=== PATIENT | female | born 1945 | race Caucasian/White ===

== ENCOUNTER 2021-08-27 13:08 | Emergency (ER) | payer MEDICARE, BC ==
[~2021-08-27] VITALS: Ht 152.4 cm; Wt 43.1 kg
[2021-08-27] MEDS ORDERED: ACETAMINOPHEN (13:35)
[2021-08-27] MEDS ORDERED: MELA3TAB41 PO (13:35)
[2021-08-27] MEDS ORDERED: AMLO10TA59 PO (13:35)
[2021-08-27] MEDS ORDERED: DOCU100C36 PO (13:35)
[2021-08-27] MEDS ORDERED: BISA10SU61 RC (13:35)
[2021-08-27] MEDS ORDERED: METO25TA6 PO (13:35)
[2021-08-27] MEDS ORDERED: ATOR20TA PO (13:35)
[2021-08-27] MEDS ORDERED: ASPI81TA31 PO (13:35)
[2021-08-27] MEDS ORDERED: CALC200T42 PO (13:35)
[2021-08-27] MEDS ORDERED: SENNA PO (13:35)
[2021-08-27] MEDS ORDERED: BACL10TA PO ×2 (13:35)
[2021-08-27] MEDS ORDERED: MIRT-94 PO (13:35)
[2021-08-27] MEDS ORDERED: LOSA100T31 PO (13:35)
[2021-08-27] MEDS ORDERED: DOCUSATE PO (13:35)
[2021-08-27] MEDS ORDERED: [UNRECOGNIZED DRUG - OTHER] PO (13:35)
[2021-08-27] MEDS ORDERED: SERT50TA PO (13:35)
[2021-08-27] MEDS ORDERED: MENT71OI TP (13:35)
[2021-08-27] MEDS ORDERED: CHOL100045 PO (13:35)
[2021-08-27] MEDS ORDERED: POLY17PO4 PO (13:35)
[2021-08-27] MEDS ORDERED: VITAMIN D (13:35)
--- NOTE | 2021-08-27 13:36 | NUR ---
PT IS IN ROOM #1A. DR CARNES EVALUATED THE PT.
[2021-08-27 13:55] LABS: HEMATOCRIT 33.5 % (31.2-41.9); MEAN CORPUSCULAR HEMOGLOBIN 33.6 uug (24.7-32.8); MEAN CORPUSCULAR VOLUME 96.6 fL (75.5-95.3); PLATELET COUNT (AUTO) 222 K/uL (179-408)
[2021-08-27 13:57] LABS: CARBON DIOXIDE 30 mmol/L (21-32); CHLORIDE 91 mmol/L (98-107); CREATININE 0.8 mg/dL (0.6-1.3); GLUCOSE 138 mg/dL (74-106); POTASSIUM 4.4 mmol/L (3.5-5.1); UREA NITROGEN, BLOOD 15 mg/dL (7-18)
[2021-08-27 14:05] LABS: ALANINE AMINOTRANSFERASE 43 U/L (14-59); ALKALINE PHOSPHATASE 102 U/L (50-136); ASPARTATE AMINOTRANSFERASE 31 U/L (15-37); BILIRUBIN,DIRECT 0.1 mg/dL (0.0-0.2); BILIRUBIN,TOTAL 0.2 mg/dL (0.2-1.0)
--- NOTE | 2021-08-27 14:05 | NUR ---
Patient is back from CT scan in same condition, denies any pains, patient wants to go home. MD notified. Patient's daughter [email or web address].
--- NOTE | 2021-08-27 15:30 | NUR ---
IV removed. Catheter intact and site benign. Pressure and 4x4 gauze applied to site. No bleeding noted. Patient does not wish to proceed with medical care recommended by Dr. Nuñez. Patient and family were given information related to possible complications, up to and including , which could occur as a result of leaving the hospital at this time. Patient and family verbalized understanding of risks involved due to leaving against medical advice. Patient signed AMA form.
[2021-08-27 15:35] VITALS: BP 120/60
== END 2021-08-27 15:36 | disposition left against medical advice (07) ==
LOC: ER 13:08
DX: E87.1 Hypo-osmolality and hyponatremia (principal); R55 Syncope and collapse; I95.9 Hypotension, unspecified; E87.8 Other disorders of electrolyte and fluid balance, not elsewhere classified; I25.10 Atherosclerotic heart disease of native coronary artery without angina pectoris; I69.951 Hemiplegia and hemiparesis following unspecified cerebrovascular disease affecting right dominant side; Z53.29 Procedure and treatment not carried out because of patient's decision for other reasons
CPT/HCPCS: 36415; 70450; 71045; 84484; 85025; 85730; 93005; A4663

== ENCOUNTER 2022-04-09 18:19 | Inpatient (IN) | payer MEDICARE, BC ==
[~2022-04-09] VITALS: Ht 152.4 cm; Wt 32.7 kg
[~2022-04-09 18:19] MED LIST: ACETAMINOPHEN; AMLO10TA59 PO; ASPI81TA31 PO; ATOR20TA PO; BACL10TA PO; BISA10SU61 RC; CALC200T42 PO; CHOL100045 PO; DOCU100C36 PO; DOCUSATE PO; LOSA100T31 PO; MELA3TAB41 PO; MENT71OI TP; METO25TA6 PO; MIRT-94 PO; POLY17PO4 PO; SENNA PO; SERT50TA PO; VITAMIN D; [UNRECOGNIZED DRUG - OTHER] PO
--- NOTE | 2022-04-09 18:26 | NUR ---
Dr [email or web address], medical screening exam in progress
[2022-04-09 18:47] LABS: HEMATOCRIT 34.6 % (31.2-41.9); MEAN CORPUSCULAR HEMOGLOBIN 32.7 uug (24.7-32.8); MEAN CORPUSCULAR VOLUME 96.7 fL (75.5-95.3); PLATELET COUNT (AUTO) 236 K/uL (179-408)
[2022-04-09 19:03] LABS: CARBON DIOXIDE 29 mmol/L (21-32); CHLORIDE 90 mmol/L (98-107); CREATININE 0.6 mg/dL (0.6-1.3); GLUCOSE 115 mg/dL (74-106); UREA NITROGEN, BLOOD 14 mg/dL (7-18)
--- NOTE | 2022-04-09 19:09 | NUR ---
Patient is back from CT scan with same condition, pending urine specimen. Patient's family is at the bedside.
--- NOTE | 2022-04-09 19:13 | NUR ---
PAUL from Sara FARRIS
[2022-04-09] MEDS ORDERED: HYDR-894 PO (19:22)
[2022-04-09] MEDS ORDERED: BACL10TA PO (19:22)
[2022-04-09] MEDS ORDERED: MULT-594 PO (19:22)
[2022-04-09] MEDS ORDERED: SENN-301 PO (19:22)
[2022-04-09] MEDS ORDERED: MENT71OI TP (19:22)
[2022-04-09] MEDS ORDERED: ACET-2154 PO (19:22)
[2022-04-09] MEDS ORDERED: IV NS 1000 ML 1,000 ML IV ONE (19:45)
--- NOTE | 2022-04-09 21:03 | NUR ---
Patient has beenj accepted by [facility]
--- NOTE | 2022-04-09 21:04 | NUR ---
Per Oumar FARRISpie filling mixer, no beds available at the moment. Patient will stay in ER until a bed is available
[2022-04-09 21:05] LABS: *BILIRUBIN,URIN NEGATIVE (NEGATIVE); *BLOOD, URINE NEGATIVE (NEGATIVE); *CLARITY,URINE CLEAR (CLEAR); *COLOR,URINE YELLOW (YELLOW); *KETONES,URINE NEGATIVE (NEGATIVE); *UROBILINOGEN,URINE 0.2 E.U./dl (NORMAL); LEUKOCYTE ESTERASE ,URINE NEGATIVE (NEGATIVE); NITRITE, URINE NEGATIVE (NEGATIVE); PH,URINE 8.5 (5.0-8.0); UGLUCOSE NEGATIVE (NEGATIVE)
[2022-04-09] MEDS ORDERED: ASPIRIN 81 MG TAB.CHEW PO ONE (21:15)
[2022-04-09] MEDS ORDERED: ASPIRIN 81 MG TAB.CHEW ONE (21:16)
[2022-04-09] MEDS ORDERED: MAGNESIUM HYDROXIDE 30 ML LIQUID UDC PO PRN (22:30)
[2022-04-09] MEDS ORDERED: ONDANSETRON 4 MG/2 ML VIAL IV PRN (22:30)
[2022-04-09] MEDS ORDERED: ACETAMINOPHEN 325 MG TABLET PO PRN (22:30)
[2022-04-09] MEDS ORDERED: REMEDY ESSENTIAL ZINC PASTE 113 GM TP PRN (22:30)
[2022-04-09] MEDS ORDERED: ENOXAPARIN SODIUM 40 MG/0.4 ML DISP.SYRIN SQ ONE (22:38)
[2022-04-09] MEDS: ENOXAPARIN SODIUM 40 MG/0.4 ML DISP.SYRIN SQ SCH (22:42)
[2022-04-10] VITALS (8 sets, daily range): BP systolic 111–197; BP diastolic 57–89
--- NOTE | 2022-04-10 04:35 | NUR ---
Patient will be transfered to [facility] 2nd floor bed 5
--- NOTE | 2022-04-10 04:36 | NUR ---
Endorsed to Rick Corral RN
--- NOTE | 2022-04-10 05:13 | NUR ---
Patient was transported from the ED to [facility]. Patient was transferred into a hospital bed and connected to the c d still operator for continuous monitoring. The patient is A/Ox4, noted to have right sided weakness due to a hx of previous CVA. The patient is admitted to [facility] for a syncopal event at her [facility]. Respiratory even and unlabored, no cough, or shortness of breath. Denies any chest pain, palpitations, or pressure. Abdomen is flat, non-tender, non-distended, denies any abdominal pain. Skin intact, with blanchable redness in the coccyx area without evidence of skin breakdown. Patient in bed at lowest position, sr upx2, call light within reach. Safety precautions implemented per protocol.
--- NOTE | 2022-04-10 05:13 | NUR ---
Pt. admitted to [facility] bed 5, under care of Estef[facility] CONFIGURATION MANAGER Belongs List completed Rick RN aware of patient's arrival
[2022-04-10 05:34] LABS: HEMATOCRIT 36.7 % (31.2-41.9); MEAN CORPUSCULAR HEMOGLOBIN 32.4 uug (24.7-32.8); MEAN CORPUSCULAR VOLUME 98.2 fL (75.5-95.3); PLATELET COUNT (AUTO) 246 K/uL (179-408)
[2022-04-10 05:49] LABS: CARBON DIOXIDE 28 mmol/L (21-32); CHLORIDE 96 mmol/L (98-107); CREATININE 0.5 mg/dL (0.6-1.3); GLUCOSE 91 mg/dL (74-106); MAGNESIUM 2.2 mg/dL (1.8-2.4); POTASSIUM 4.2 mmol/L (3.5-5.1); UREA NITROGEN, BLOOD 11 mg/dL (7-18)
[2022-04-10 05:56] LABS: BILIRUBIN,DIRECT 0.1 mg/dL (0.0-0.2); BILIRUBIN,TOTAL 0.3 mg/dL (0.2-1.0); PHOSPHOROUS 3.8 mg/dL (2.5-4.9); TOTAL PROTEIN, SERUM 7.8 g/dL (6.4-8.2)
[2022-04-10 06:01] LABS: THYROID STIMULATING HORMONE 2.769 mIU/mL (0.358-3.740)
--- NOTE | 2022-04-10 07:11 | NUR ---
Report given to Lilly Marshall RN for continuity of care. Patient vital signs are stable, pending echocardiogram today and further observation. Plan of care discussed with day shift.
--- NOTE | 2022-04-10 08:31 | NUR ---
Bed side swallow screen passed. Vegan diet tolerated well and without complications. Remains alert and oriented and answered all questions appropriately when asked.
[2022-04-10] MEDS: AMLODIPINE 10 MG TABLET PO SCH (09:00)
[2022-04-10] MEDS: CALCIUM CITRATE 950MG TAB PO SCH ×3 (09:00→17:11)
[2022-04-10] MEDS: PANTOPRAZOLE SODIUM 40 MG VIAL IV SCH (09:15)
[2022-04-10] MEDS: CHOLECALCIFEROL 1,000 UNIT TABLET PO SCH (09:15)
[2022-04-10] MEDS: MULTIVITAMINS,THERAPEUTIC TABLET PO SCH (09:15)
[2022-04-10] MEDS: ATORVASTATIN 20 MG TABLET PO SCH (09:16)
[2022-04-10] MEDS: LOSARTAN POTASSIUM 50 MG TABLET PO SCH (09:16)
[2022-04-10] MEDS: ASPIRIN 81 MG TAB.CHEW PO SCH (09:16)
[2022-04-10] MEDS: METOPROLOL TARTRATE 25 MG TABLET PO SCH ×2 (09:17→17:08)
[2022-04-10] MEDS: SERTRALINE HCL 50 MG TABLET PO SCH (09:18)
--- NOTE | 2022-04-10 09:46 | NUR ---
Education provided verbally to patient discussed diet currently is on a vegan diet and it is prepared by the facility she resides. Reviewed all am medications purpose for and risk factors associated with hypertensive medications. Instructed to take in the morning with breakfast. Instructed to dangle in the morning or before getting up from chair and not to move to fast from a sitting or lying position to upright. PT evaluation at this time and education provided by therapist verbally patient verbalized understanding. No light headiness or dizziness with physical therapy.
[2022-04-10] MEDS ORDERED: IV NS 1000 ML 1,000 ML IV PRN (10:30)
[2022-04-10 12:19] LABS: CARBON DIOXIDE 30 mmol/L (21-32); CHLORIDE 95 mmol/L (98-107); CREATININE 0.5 mg/dL (0.6-1.3); GLUCOSE 116 mg/dL (74-106); POTASSIUM 4.4 mmol/L (3.5-5.1); UREA NITROGEN, BLOOD 11 mg/dL (7-18)
[2022-04-10] MEDS ORDERED: MIRTAZAPINE 15 MG TABLET PO SCH (18:00)
--- NOTE | 2022-04-10 19:15 | NUR ---
Pt is noted in bed alert, responsive with call light in reach and fall precautions in place as report is received from the off going nurse. Sinus Rhythm on the Tele monitor, Diminished Lungs sound , Room Air, skin dry, warm and intact . Pt is also noted with Right side weakness due to History off CVA. Pt care continue as he will be monitor closely , assist as needed with or ordered noted to Transferred to TELE , ward supervisor is aware off transferred to Tele order.
--- NOTE | 2022-04-10 20:00 | NUR ---
Pt remain Full code , Sinus Rhythm on the Tele monitor with no S/S off distress as report is given to the 3rd Floor receiving nurse. Pt care continue as awaits transferred to 3RD TELE Room 307.
[2022-04-10] MEDS: ENOXAPARIN SODIUM 40 MG/0.4 ML DISP.SYRIN SQ SCH (20:19)
--- NOTE | 2022-04-10 20:25 | NUR ---
Pt is noted off the unit to the 3rd Floor Room 307 as she is been transferred as ordered with no S/S off distress or C/O Pain. Pt care continue.
--- NOTE | 2022-04-10 20:30 | NUR ---
Received patient from CCU, but patient is Tele patient, sinus rhythm 67. no sob no chest pain, continent of bladder, uses bedpan for B/B elimination. cont to monitor.
[2022-04-11] VITALS: BP 147/58
[2022-04-11 04:00] VITALS: BP 159/66
--- NOTE | 2022-04-11 05:36 | NUR ---
Patient awake, hob elevated, no sob no chest pain, sinus rhythm, given bed gan for bladder eliminations, cont to monitor.
[2022-04-11 07:16] LABS: HEMATOCRIT 35.9 % (31.2-41.9); MEAN CORPUSCULAR HEMOGLOBIN 32.9 uug (24.7-32.8); MEAN CORPUSCULAR VOLUME 97.4 fL (75.5-95.3); PLATELET COUNT (AUTO) 238 K/uL (179-408)
[2022-04-11 07:27] LABS: ALANINE AMINOTRANSFERASE 33 U/L (14-59); ALKALINE PHOSPHATASE 143 U/L (50-136); ASPARTATE AMINOTRANSFERASE 31 U/L (15-37); BILIRUBIN,TOTAL 0.4 mg/dL (0.2-1.0); CARBON DIOXIDE 28 mmol/L (21-32); CHLORIDE 99 mmol/L (98-107); CREATININE 0.4 mg/dL (0.6-1.3); GLUCOSE 94 mg/dL (74-106); PHOSPHOROUS 2.9 mg/dL (2.5-4.9); POTASSIUM 4.1 mmol/L (3.5-5.1); TOTAL PROTEIN, SERUM 7.6 g/dL (6.4-8.2); UREA NITROGEN, BLOOD 9 mg/dL (7-18)
[2022-04-11] MEDS: ASPIRIN 81 MG TAB.CHEW PO SCH (08:39)
[2022-04-11] MEDS: PANTOPRAZOLE SODIUM 40 MG VIAL IV SCH (08:39)
[2022-04-11] MEDS: CALCIUM CITRATE 950MG TAB PO SCH ×2 (08:39→13:16)
[2022-04-11] MEDS: LOSARTAN POTASSIUM 50 MG TABLET PO SCH (08:40)
[2022-04-11] MEDS: METOPROLOL TARTRATE 25 MG TABLET PO SCH (08:41)
[2022-04-11] MEDS: CHOLECALCIFEROL 1,000 UNIT TABLET PO SCH (08:42)
[2022-04-11] MEDS: AMLODIPINE 10 MG TABLET PO SCH (08:42)
[2022-04-11] MEDS: SERTRALINE HCL 50 MG TABLET PO SCH (08:42)
[2022-04-11] MEDS: MULTIVITAMINS,THERAPEUTIC TABLET PO SCH (08:42)
[2022-04-11] MEDS: ATORVASTATIN 20 MG TABLET PO SCH (08:50)
[2022-04-11 12:00] VITALS: BP 142/68
--- NOTE | 2022-04-11 14:20 | NUR ---
Patient is discharged to [facility]. Discharge instructions given, patient verbalized understanding. All personal belongings taken with her. Left unit via stretcher with crew members awake, alert, and verbal no distress.
[2022-04-12] MEDS ORDERED: PANTOPRAZOLE SODIUM 40 MG TABLET.DR PO SCH (07:00)
== END 2022-04-11 14:25 | DRG 73 ==
LOC: ER 18:21 → CCU 22:30 → TELE3 04-10 20:30 → MEDSURG3 04-11 10:13
PROVIDERS: ADMIT Nurse Practitioner Acute Care; ATTEND Nurse Practitioner Acute Care
DX: G90.8 Other disorders of autonomic nervous system (principal); G93.41 Metabolic encephalopathy; E87.1 Hypo-osmolality and hyponatremia; I69.351 Hemiplegia and hemiparesis following cerebral infarction affecting right dominant side; E86.1 Hypovolemia; Z96.641 Presence of right artificial hip joint; Z99.3 Dependence on wheelchair; Z88.0 Allergy status to penicillin; Z79.82 Long term (current) use of aspirin; Z79.899 Other long term (current) drug therapy; F42.9 Obsessive-compulsive disorder, unspecified; I25.10 Atherosclerotic heart disease of native coronary artery without angina pectoris; E03.9 Hypothyroidism, unspecified; I10 Essential (primary) hypertension; F32.A Depression, unspecified
CPT/HCPCS: 36415; 70450; 71045; 83735; 83930; 83935; 84100; 84300; 84443; 84481; 84484; 85025; 85651; 93005; 93307; A4663; C9113; G0378; J1650; J7040